=== PATIENT | male | born 1990 | race Caucasian/White ===

== ENCOUNTER 2019-03-25 20:14 | Emergency (ER) | payer OTHER ==
[2019-03-25 20:54] VITALS: BP 122/79
--- NOTE | 2019-03-25 21:08 | UC ---
Skin Complaint HPI - HPI Summary HPI Summary: Pt presents with c/o acute "flare of " eczema. Pt has a history of eczema and occasionally has acute "flares" and he states taht he then gets secondary skin infections as the skin cracks and opens. - History of Current Complaint Chief Complaint: UCSkin Time Seen by Provider: 03/25/19 21:01 Stated Complaint: RASH Hx Obtained From: Patient Onset/Duration: Gradual Onset, Lasting Days, Worse Since - onset Skin Exposure Onset/Duration: Days Ago Timing: Constant Onset Severity: Moderate Current Severity: Severe Pain Intensity: 4 Location: Diffuse Character: Swelling, Pruritus, Redness Aggravating Factor(s): Other - movement Alleviating Factor(s): Nothing Associated Signs & Symptoms: Positive: Rash, Drainage, Tenderness Related History: Other: - hx of eczema - Allergy/Home Medications Allergies/Adverse Reactions: Allergies Allergy/AdvReac Type Severity Reaction Status Date / Time No Known Allergies Allergy Verified 03/25/19 20:55 PMH/Surg Hx/FS Hx/Imm Hx Previously Healthy: Yes - Surgical History Surgical History: None - Family History Known Family History: Positive: Cardiac Disease - Social History Occupation: Employed Full-time Lives: With Family Alcohol Use: Occasionally Substance Use Type: None Smoking Status (MU): Never Smoked Tobacco Have You Smoked in the Last Year: No - Immunization History Vaccination Up to Date: Yes Review of Systems All Other Systems Reviewed And Are Negative: Yes Constitutional: Positive: Negative Skin: Positive: Rash - diffuse, erythematous, eczeam with dry, skin crackin gdraining serous fluid Eyes: Positive: Negative ENT: Positive: Negative Respiratory: Positive: Negative Cardiovascular: Positive: Negative Gastrointestinal: Positive: Negative Genitourinary: Positive: Negative Motor: Positive: Negative Neurovascular: Positive: Negative Musculoskeletal: Positive: Negative Neurological: Positive: Negative Psychological: Positive: Negative Is Patient Immunocompromised?: No Physical Exam Triage Information Reviewed: Yes Appearance: Well-Appearing Vital Signs: Initial Vital Signs Temp 98.2 F 03/25/19 20:48 Pulse 58 03/25/19 20:48 Resp 16 03/25/19 20:48 BP 122/79 03/25/19 20:48 Pulse Ox 98 03/25/19 20:48 Vital Signs Reviewed: Yes Eye Exam: Normal ENT Exam: Normal Dental Exam: Normal Neck exam: Normal Respiratory: Positive: No respiratory distress Musculoskeletal Exam: Normal Neurological Exam: Normal Psychological Exam: Normal Skin: Positive: Rashes, Other - diffuse, erythematous, eczema with dry, skin cracking draining serous fluid, generalized swelling, Course/Dx - Differential Diagnoses - Skin Complaint Differential Diagnoses: Eczema - Diagnoses Provider Diagnosis: Eczema Discharge - Sign-Out/Discharge Documenting (check all that apply): Patient Departure All imaging exams completed and their final reports reviewed: No Studies - Discharge Plan Condition: Stable Disposition: HOME Prescriptions: Cephalexin CAP* [Keflex 500 CAP*] 500 mg PO Q8H #21 cap Mupirocin 2% OINT* [Bactroban 2 % Oint*] 1 applic TOPICAL Q12H #1 tube predniSONE TAB* [Deltasone 10 MG TAB*] 60 mg PO DAILY #30 tab predniSONE TAB* [Deltasone 20 MG TAB*] 60 mg PO DAILY #6 tab Patient Education Materials: Eczema (ED) Referrals: [facility] [place] [facility] [Outside] Destiny Curran MD [Medical Doctor] - As Soon As Possible No Primary Care Phys,NOPCP [Primary Care Provider] - - Billing Disposition and Condition Condition: STABLE Disposition: Home
== END 2019-03-25 21:28 | disposition home or self-care (01) ==
LOC: UCEAST 20:14
DX: L30.9 Dermatitis, unspecified (principal)
CPT/HCPCS: 99202; G0463